=== PATIENT | male | born 1940 | race Caucasian/White ===

== ENCOUNTER 2019-01-20 09:17 | Emergency (ER) | payer OTHER ==
[~2019-01-20] VITALS: Ht 170.2 cm; Wt 59.4 kg
[2019-01-20] MEDS ORDERED: PLAVIX 75 MG TA75 M1 PO (09:21)
[2019-01-20] MEDS ORDERED: PROTONIX40 M1 PO (09:21)
[2019-01-20] MEDS ORDERED: METFORMIN HCL500 MG PO (09:21)
[2019-01-20] MEDS ORDERED: COZAAR 25 MG TA25 M2 PO (09:21)
[2019-01-20] MEDS ORDERED: LIPITOR 20 MG T20 M1 PO (09:21)
[2019-01-20] MEDS ORDERED: LOPRESSOR50 PO (09:22)
[2019-01-20 09:59] LABS: HEMATOCRIT 38.8 % (42.0-52.0); HEMOGLOBIN 13.3 gm/dL (14.0-18.0); MCH 29.7 pg (26.0-34.0); MCHC 34.2 g/dL (28.0-37.0); MCV 86.8 fL (80.0-100.0); MPV 6.6 fl. (7.2-11.1); NUCLEATED RBCS 0 /100WBC; PLATELET COUNT* 248 thou/uL (150-400); RBC 4.47 mil/uL (4.50-6.00); RDW-CV 13.4 % (10.5-14.5); WBC 13.2 thou/uL (4.0-11.0)
[2019-01-20 10:02] LABS: BE -4.5 mmol/L (-2 to +3); PCO2 23.4 mmHg (35.0-45.0)
[2019-01-20 10:07] LABS: CALCIUM 9.6 mg/dL (8.5-10.1); CREATININE 1.1 mg/dL (0.6-1.3); POTASSIUM 3.8 mmol/L (3.5-5.1)
[2019-01-20 10:12] LABS: ALBUMIN 4.3 g/dL (3.4-5.0); TOTAL BILIRUBIN 1.1 mg/dL (<0.1-1.0); TOTAL PROTEIN 7.3 g/dL (6.4-8.2)
[2019-01-20 10:24] LABS: ABSOLUTE LYMPHOCYTES 0.9 thou/uL (0.8-5.3); ABSOLUTE NEUTROPHILS 12.3 thou/uL (1.6-8.1); ATYPICAL LYMPHS 1 %; PLATELET ESTIMATE ADEQUATE
[2019-01-20 11:14] LABS: URINE BLOOD NEGATIVE (Negative); URINE CLARITY CLEAR; URINE COLOR YELLOW; URINE GLUCOSE-RANDOM NEGATIVE (Negative); URINE KETONES 1+ (Negative); URINE LEUKOCYTES-REFLEX NEGATIVE (Negative); URINE NITRITE-REFLEX NEGATIVE (Negative); URINE PROTEIN 2+ (Negative); URINE SPECIFIC GRAVITY >= 1.030 (1.005-1.030); URINE UROBILINOGEN 0.2 E.U./dl (0.2-1.0)
[2019-01-20 11:16] LABS: ICTOTEST (BILI CONFIRMATORY) Positive (Negative); URINE BILIRUBIN 2+ (Negative)
[2019-01-20 11:24] LABS: BACTERIA-REFLEX 1-9 Few /HPF (None Seen); CRYSTALS None Seen /LPF (None Seen); HYALINE CASTS >10 Many /LPF (None Seen); MUCUS >6 Heavy strn/LPF (None Seen); RENAL EPITHELIAL CELLS 4-10 Moderate /LPF (None Seen); SQUAMOUS 4-10 Moderate /LPF (0-3); URINE RBC 3-10 Few /HPF (0-2); URINE WBC-REFLEX 0-5 Rare /HPF (0-5)
[2019-01-20 15:00] VITALS: BP 136/61
--- NOTE | 2019-01-20 17:06 | EKG ---
[place] [address] ELECTROCARDIOGRAM REPORT Name: YOHANA GRAF 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1940 Requested By: Salma Humphries Order Number: [id number] MD: Alek Russell Measurements Intervals [place] Rate: 65 P: 89 MA: 65 QRS: 88 QRSD: 124 T: -61 QT: 387 QTc: 403 Interpretive Statements Sinus rhythm Atrial premature complex Short MA interval Right bundle branch block Inferior Q waves notedLateral leads are also involved No previous ECG available for comparison Electronically Signed On 01-20-2019 17:05:55 CDT by Alek Russell [email or web address] <ELECTRONICALLY SIGNED> By: Alek Russell MD, [facility] 01/20/19 1705 100 00 Alek Russell MD, FAC /EPI
== END 2019-01-20 15:00 | disposition home or self-care (01) ==
LOC: M.ERS 09:17
PROVIDERS: Personal Emergency Response Attendant
DX: S51.011A Laceration without foreign body of right elbow, initial encounter (principal); R53.1 Weakness; R42 Dizziness and giddiness; W18.39XA Other fall on same level, initial encounter; Y93.89 Activity, other specified; Y92.89 Other specified places as the place of occurrence of the external cause; Y99.8 Other external cause status

== ENCOUNTER 2020-06-29 16:58 | Emergency (ER) | payer OTHER ==
[~2020-06-29] VITALS: Ht 175.3 cm; Wt 68.0 kg
[~2020-06-29 16:58] MED LIST: COZAAR 25 MG TA25 M2 PO; LIPITOR 20 MG T20 M1 PO; LOPRESSOR50 PO; METFORMIN HCL500 MG PO; PLAVIX 75 MG TA75 M1 PO; PROTONIX40 M1 PO
[2020-06-29 18:03] LABS: ABSOLUTE LYMPHOCYTES 0.7 thou/uL (0.8-5.3); ABSOLUTE MONOCYTES 0.6 thou/uL (0.0-1.2); ABSOLUTE NEUTROPHILS 6.7 thou/uL (1.6-8.1); BASOPHILS 0.3 %; EOSINOPHILS 0.1 %; HEMATOCRIT 33.8 % (42.0-52.0); HEMOGLOBIN 11.8 gm/dL (14.0-18.0); LYMPHOCYTES 8.8 %; MCH 28.6 pg (26.0-34.0); MCHC 34.9 g/dL (28.0-37.0); MCV 81.9 fL (80.0-100.0); MONOCYTES 7.8 %; MPV 7.5 fl. (7.2-11.1); NUCLEATED RBCS 0 /100WBC; PLATELET COUNT* 358 thou/uL (150-400); RBC 4.13 mil/uL (4.50-6.00); RDW-CV 14.1 % (10.5-14.5); WBC 8.1 thou/uL (4.0-11.0)
[2020-06-29 18:05] LABS: URINE BLOOD NEGATIVE (Negative); URINE CLARITY CLEAR; URINE COLOR YELLOW; URINE GLUCOSE-RANDOM TRACE (Negative); URINE KETONES 1+ (Negative); URINE LEUKOCYTES-REFLEX NEGATIVE (Negative); URINE NITRITE-REFLEX NEGATIVE (Negative); URINE PROTEIN 1+ (Negative); URINE SPECIFIC GRAVITY 1.025 (1.005-1.030); URINE UROBILINOGEN 0.2 E.U./dl (0.2-1.0)
[2020-06-29] MEDS ORDERED: PROZAC20 M1 (18:12)
[2020-06-29 18:16] LABS: ICTOTEST (BILI CONFIRMATORY) Negative (Negative); URINE BILIRUBIN 1+ (Negative)
[2020-06-29 18:17] LABS: APTT 26.3 Seconds (25.0-31.3); INR 1.1; PROTIME 11.4 Seconds (9.20-11.50)
[2020-06-29 18:21] LABS: CALCIUM 8.4 mg/dL (8.5-10.1); CREATININE 0.9 mg/dL (0.6-1.3); POTASSIUM 3.9 mmol/L (3.5-5.1)
[2020-06-29 18:26] LABS: ALBUMIN 2.7 g/dL (3.4-5.0); TOTAL BILIRUBIN 0.8 mg/dL (<0.1-1.0); TOTAL PROTEIN 6.3 g/dL (6.4-8.2)
[2020-06-29 19:25] VITALS: BP 146/58
--- NOTE | 2020-07-01 12:42 | EKG ---
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[place] : 1940 Requested By: Anton Brothers Order Number: [id number] MD: Gagan Merritt Measurements Intervals [place] Rate: 75 P: 64 VA: 190 QRS: 44 QRSD: 114 T: -39 QT: 407 QTc: 455 Interpretive Statements Sinus rhythm with pac's nonspecific t wave changes nonspecific t wave changes Incomplete right bundle branch block Low voltage, extremity leads Abnormal R-wave progression, late transition Baseline wander in lead(s) V3,V5 Compared to ECG 01/20/2019 10:01 no change Electronically Signed On 07-01-2020 12:42:13 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 07/01/20 1242 1818 1818 Gagan Merritt MD, [facility] /EPI
== END 2020-06-29 19:25 | disposition home or self-care (01) ==
LOC: M.ERS 16:58
PROVIDERS: Family Medicine
DX: E86.0 Dehydration (principal); E11.65 Type 2 diabetes mellitus with hyperglycemia; E78.5 Hyperlipidemia, unspecified; Z79.01 Long term (current) use of anticoagulants; Z95.0 Presence of cardiac pacemaker; Z79.899 Other long term (current) drug therapy; Z90.89 Acquired absence of other organs; Z20.828 Contact with and (suspected) exposure to other viral communicable diseases